=== PATIENT | female | born 1980 | race Caucasian/White ===

== ENCOUNTER 2020-06-22 22:10 | Observation (INO) | payer BC, SELFPAY ==
--- NOTE | ~2020-06-22 | CT_ITS ---
EXAMINATION: CT abdomen pelvis w con EXAM DATE: 06/23/2020 03:07 INDICATION: Low abdominal pain, flank pain, recent UTI. Fever nausea. Dysuria. TECHNIQUE: Spiral CT of the abdomen and pelvis was performed following intravenous injection of 100 m L Omnipaque 350. Axial, coronal and sagittal images were reviewed. The dose-length product (DLP) fo r this examination was 428.90 mGy-cm. The exposure was tailored according to patient size (auto mA e xposure control), and iterative reconstruction (ASIR) was used as additional dose reduction technique . There is no prior study for comparison. FINDINGS: The liver, spleen, adrenal glands and pancreas are unremarkable. There are cholecystectomy clips. Portal and splenic veins are patent. Kidneys enhance symmetrically. There is no hydronephr osis. The right ureter urothelium is enhancing suspicious for upper UTI. The uterus is unremarkable. The bladder is unremarkable. There is no retroperitoneal or pelvic lymphadenopathy. The appendix is normal. The stomach and small bowel are unremarkable. There is expected amount of c olonic stool. No free intraperitoneal gas. The heart is normal in size. There are no pericardial or pleural effusions. The lung bases are unremarkable. The bones are unremarkable. IMPRESSION: Right ureteral enhancement may indicate upper urinary tract infection. No evidence of roseline al parenchymal involvement. Reviewed, dictated and finalized at location A. IMPRESSION: Right ureteral enhancement may indicate upper urinary tract infecti on. No evidence of renal parenchymal involvement.
[2020-06-22 22:13] VITALS: BP 125/63; PULSE 100; RESP 16; TEMP 36.8; O2SAT 100
[2020-06-22 22:28] LABS: Basophils Percent Auto 0.2 % (0.2-1.2); Hemoglobin 11.6 g/dL (12.0-15.0); Immature Granulocyte Absolute 0.06 K/mm3 (0.00-0.031); Immature Granulocyte Percent A 0.4 % (0-0.5); Lymphocytes Absolute Auto 0.35 K/mm3 (0.9-3.2); Lymphocytes Percent Auto 2.1 % (18.3-44.2); Mean Corpuscular HGB Conc 33.1 g/dl (32-36); Mean Corpuscular Hemoglobin 27.7 pg (26-34); Mean Corpuscular Volume 83.5 fl (80-100); Mean Platelet Volume 10.4 fl (7.4-10.4); Monocytes Absolute Auto 0.5 K/mm3 (0.1-0.6); Monocytes Percent Auto 3.2 % (2.6-8.5); Neutrophils Absolute Auto 15.4 K/mm3 (1.3-6.7); Neutrophils Percent Auto 94.1 % (45.5-73.1); Platelet Count Result 289 k/mm3 (150-375); Red Blood Count 4.19 M/mm3 (4.2-5.4); Red Cell Distribution Width 12.9 % (11.5-14.5); White Blood Count 16.4 K/mm3 (4.5-10.0)
[2020-06-22 22:39] LABS: Add Urine Microscopic? YES; Appearance Urine Turbid (Clear); Bacteria Urine 1+ /hpf; Bilirubin Urine Negative (Negative); Blood Urine 2+ (Negative); Color Urine Yellow (Yellow); Glucose Urine UA Negative (Negative); Ketones Urine 1+ mg/dL (Negative); Leukocyte Esterase Ur 3+ LEU/UL (Negative); Mucus Urine Heavy /lpf; Nitrate Urine Positive (Negative); Protein Urine 2+ mg/dL (Negative); RBC Urine 21-50 /hpf (0-2); Specific Grav Ur 1.016 (1.001-1.035); WBC Clumps Urine Present /HPF; WBC Urine >75 /hpf
[2020-06-22 22:40] LABS: Alanine Aminotransferase 12 U/L (4-35); Albumin Level 4.1 g/dL (3.5-5.1); Alkaline Phosphatase 50 U/L (38-126); Anion Gap 10 mmol/L (8-16); Aspartate Amino Transferase 18 U/L (14-36); Bilirubin,Total 0.8 mg/dL (0.2-1.3); Blood Urea Nitrogen 11 mg/dL (7-17); Carbon Dioxide 24 mmol/L (22-30); Chloride 104 mmol/L (98-107); Estimated CRCL calculation 104 ml/min; Estimated Glomerular Filt Rate > 60; Glucose 148 mg/dL (65-105); Lipase 35 U/L (23-300); Potassium 3.6 mmol/L (3.4-5.0); Sodium 138 mmol/L (137-145)
[2020-06-22 23:45] VITALS: BP 107/67; BP 118/82; PULSE 78; PULSE 85; RESP 17; RESP 18; O2SAT 98; O2SAT 99
--- NOTE | 2020-06-22 23:48 | ECG_ITS ---
Measurements Intervals [place] Rate: 88 P: 70 IA: 149 QRS: 82 QRSD: 93 T: 45 QT: 350 QTc: 424 Interpretive Statements SINUS RHYTHM INCOMPLETE RIGHT BUNDLE BRANCH BLOCK BORDERLINE ECG Electronically Signed On 06-23-2020 6:51:00 CDT by Taj Talavera D.O.
[2020-06-23] VITALS (13 sets, daily range): BP systolic 100–122; BP diastolic 60–82; PULSE 68–96; RESP 17–20; TEMP 36.1–36.7; O2SAT 98–100; BMI 24.0
[2020-06-23 00:54] LABS: Lactic Acid Reflex 1.1 mmol/L (0.7-2.1)
--- NOTE | 2020-06-23 02:19 | ED.GENADULT ---
HPI - General Adult General Chief complaint: Urogenital-Female Stated complaint: fever, uti Time Seen by Provider: 06/23/20 02:12 Source: RN notes reviewed History of Present Illness HPI narrative: Patient presents emergency department from home for UTI. Patient states that she had a UTI 1 week ago was on antibiotics with improvement of symptoms. She states when she got antibiotics the symptoms again came back. She states that today she is developed a fever as well as lower abdominal pain and back pain worse on the left than the right. She states at home today she got ago to use the restroom and had a presyncopal episode with her who witnessed the episode was with the patient denies patient hitting her head. Patient denies any chest pain shortness of breath or any other symptoms Related Data Allergies Allergy/AdvReac Type Severity Reaction Status Date / Time No Known Allergies Allergy Mild Verified 06/22/20 22:17 Review of Systems Review of Systems: Narrative: Gen.: Denies fevers or chills Eyes: Denies eye pain or visual change ENT: Denies congestion Respiratory: Denies shortness of breath or cough CV: Reports syncopal episode GI: Reports lower abdominal pain, denies any diarrhea reports nausea vomiting see HPI Musculoskeletal: Denies back pain or muscle pain Neuro: Denies numbness, tingling, weakness or focal weakness Skin: Denies rash Except as documented, all other systems reviewed and negative [facility] Past Medical History Medical History (Updated 06/23/20 @ 04:01 by Dago Fountain DO) Patient denies significant medical history Social History Social History (Updated 06/23/20 @ 02:21 by Dago Fountain DO) Smoking status: Never smoker Exam Narrative: Exam Narrative: APPEARANCE: No acute distress, nontoxic, resting in bed HEENT: Normocephalic, atraumatic, OMM RESPIRATORY: No respiratory distress, clear to auscultation bilaterally with no rhonchi wheezing or rales CARDIOVASCULAR: RRR s murmur ABDOMINAL: Soft, nondistended, tender palpation right lower quadrant and left lower quadrant, no change mental quadrant left upper quadrant, no rebound or guarding, left flank tenderness MUSCULOSKELETAl: Moves all extremities. No clubbing, cyanosis or edema. NEURO: Awake and alert. Following commands, speech normal, no focal deficits SKIN:: Warm, dry. Normal Color PSYCHIATRIC: Normal affect/mood Course Course Emergency Course: Discussed Dr. Duke presentation work-up. Agrees with admission at this time Discussed with patient and family results of workup and diagnosis. Discussed need for admission. Patient and family understand and agree to current treatment plan Vital Signs Vital signs: Vital Signs Temperature 98.2 F 06/22/20 22:13 Pulse Rate 100 06/22/20 22:13 Respiratory Rate 16 06/22/20 22:13 Blood Pressure 125/63 06/22/20 22:13 Pulse Oximetry 100 06/22/20 22:13 Temperature 97.9 F 06/23/20 01:48 Pulse Rate 85 06/23/20 02:30 Respiratory Rate 17 06/23/20 01:48 Blood Pressure 115/68 06/23/20 02:30 Pulse Oximetry 98 06/23/20 01:48 Medical Decision Making Vital Signs Vital Signs: Vital Signs Temperature 98.2 F 06/22/20 22:13 Pulse Rate 100 06/22/20 22:13 Respiratory Rate 16 06/22/20 22:13 Blood Pressure 125/63 06/22/20 22:13 Pulse Oximetry 100 06/22/20 22:13 Temperature 97.9 F 06/23/20 01:48 Pulse Rate 85 06/23/20 02:30 Respiratory Rate 17 06/23/20 01:48 Blood Pressure 115/68 06/23/20 02:30 Pulse Oximetry 98 06/23/20 01:48 Lab Data Result diagrams: 06/22/20 22:22 06/22/20 22:22 Labs: Lab Results 06/22/20 06/22/20 06/22/20 Range/Units 22:22 22:22 22:22 WBC 16.4 H (4.5-10.0) K/mm3 RBC 4.19 L (4.2-5.4) M/mm3 Hgb 11.6 L (12.0-15.0) g/dL Hct 35.0 L (37.0-47.0) % MCV 83.5 (80-100) fl MCH 27.7 (26-34) pg MCHC 33.1 (32-36) g/dl RDW 12.9 (11.5-
[2020-06-23] MEDS: SODIUM CHLORIDE 0.9% IV 1,000 ML 999 ML IV CONT (02:51)
[2020-06-23 03:34] LABS: Troponin I < 0.012 ng/mL (0.000-0.034)
[2020-06-23] MEDS: SODIUM CHLORIDE 0.9% IV 1,000 ML 125 ML IV CONT ×3 (04:00→21:23)
[2020-06-23] MEDS: KETOROLAC 30 MG/ML VIAL (*BKC) IV PUSH (04:52)
--- NOTE | 2020-06-23 06:58 | ADMGEN ---
This patient, Lea Lewis, was admitted to 3 [facility] Surg Room 300-01. Patient/family oriented to hospital policies and general routines including ID bracelet, bed and alarms, visiting hours, pain management, procedures, bathroom and other care routines, personal items, smoking policy, room service/diet, and visiting hours. Valuables list has been completed. Information on how to activate the Rapid Response Team has been discussed. Patient/Family are encouraged to report perceived risks to care and to ask questions if they do not understand what they are told or what they should do. TDialRNC
[2020-06-23 09:31] LABS: Basophils Percent Auto 0.3 % (0.2-1.2); Eosinophils Percent Auto 0.4 % (0-4.4); Hematocrit 33.9 % (37.0-47.0); Hemoglobin 10.9 g/dL (12.0-15.0); Immature Granulocyte Absolute 0.04 K/mm3 (0.00-0.031); Immature Granulocyte Percent A 0.4 % (0-0.5); Lymphocytes Absolute Auto 1.32 K/mm3 (0.9-3.2); Lymphocytes Percent Auto 12.7 % (18.3-44.2); Mean Corpuscular HGB Conc 32.2 g/dl (32-36); Mean Corpuscular Hemoglobin 27.3 pg (26-34); Mean Platelet Volume 10.7 fl (7.4-10.4); Monocytes Absolute Auto 0.6 K/mm3 (0.1-0.6); Neutrophils Absolute Auto 8.3 K/mm3 (1.3-6.7); Neutrophils Percent Auto 80.2 % (45.5-73.1); Platelet Count Result 271 k/mm3 (150-375); Red Blood Count 3.99 M/mm3 (4.2-5.4); Red Cell Distribution Width 13.1 % (11.5-14.5); White Blood Count 10.4 K/mm3 (4.5-10.0)
[2020-06-23 09:40] LABS: Alanine Aminotransferase 9 U/L (4-35); Albumin Level 3.6 g/dL (3.5-5.1); Alkaline Phosphatase 41 U/L (38-126); Anion Gap 3 mmol/L (8-16); Aspartate Amino Transferase 14 U/L (14-36); Bilirubin,Total 0.4 mg/dL (0.2-1.3); Blood Urea Nitrogen 9 mg/dL (7-17); Calcium 8.3 mg/dL (8.4-10.2); Carbon Dioxide 27 mmol/L (22-30); Chloride 107 mmol/L (98-107); Estimated CRCL calculation 120 ml/min; Estimated Glomerular Filt Rate > 60; Glucose 92 mg/dL (65-105); Potassium 3.7 mmol/L (3.4-5.0); Sodium 137 mmol/L (137-145)
--- NOTE | 2020-06-23 11:45 | PM.IMHP ---
H&P: HPI History of Present Illness Date/Time: 06/23/20 11:45 Chief complaint: sepsis, UTI, syncope Narrative: Date of admission: 06/23/2020 Date of service: 06/23/2020 Lea Lewis is a healthy 40 year old female with history of frequent UTIs who presented to the emergency department on 06/23/2020 with complaints of UGI symptoms. She had been having symptoms of dysuria, frequency, urgency, lower abdominal pain for approximately 1 week. She had a prescription for Bactrim prescribed to her on an as-needed basis given her history of frequent UTIs. She took this for about 7 days with no improvement in her symptoms. Yesterday, she scheduled an appointment with PCP who prescribed a different antibiotic, although she cannot recall the name of this medication. She did not receive any doses of this medication. When she arrived home from the appointment, she began feeling acutely worse. She was vomiting, had chills, and fever with T-max 101.0?. She had an episode of presyncope while ambulating to the bathroom. She did not lose consciousness, fall, or hit her head. After this episode, she proceeded to the emergency department. Upon arrival, she was afebrile and additional vital signs stable. UA was grossly abnormal and white count elevated at 16.4. She had a CT a/p which showed right ureteral enhancement which may indicate upper UTI. Upon my evaluation, she is feeling better. She has not had any further episodes of vomiting and she denies nausea. Fever and chills have resolved. She denies any dizziness or lightheadedness. She continues to endorse dysuria and lower abdominal pain. Review of Systems Review of Systems: Narrative: 12 systems reviewed with pertinent positives and negatives as per HPI below. She denies shortness of breath, chest pain, MONAE, palpitations, cough, congestion, sore throat, dysphagia, numbness, tingling, lower extremity edema, body aches and cramps, bleeding or bruising. She endorses a mild headache. She also has some menstrual cramps. She is currently on her menstrual cycle. Bedside test in ED was negative. [facility] Past Medical History Medical History (Updated 06/23/20 @ 11:57 by Noelle Martinez PA-C) Frequent UTI Surgical History Surgical History (Updated 06/23/20 @ 11:57 by Noelle Martinez PA-C) H/O section x3 History of cholecystectomy 2019 Family History Family History (Updated 06/23/20 @ 11:58 by Noelle Martinez PA-C) Father Acute myocardial infarction Mother Hypertension Grandparent Diabetes mellitus Social History Social History (Updated 06/23/20 @ 11:59 by Noelle Martinez PA-C) Social History: Ms. Ayala lives at home with her and 3 daughters. 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 She is independent in her ADLs. Her PCP is Dr. Patterson. She designate her , Bishop, as her surrogate decision maker. She would like to be a full code. Smoking packs per day: 0.5 Smoking cigarettes per day: 10.0 Years smoked: 4 Smoking pack-years: 2.00 Smoking status: Former smoker Alcohol intake: never Substance use: never Living arrangements: with family Gender identity (if verbalized by the patient): Female Spiritual care concerns: No Meds Home Medications and Allergies Home Medications Medication Instructions Recorded Confirmed Type No Home Medications 06/23/20 06/23/20 History Allergies Allergy/AdvReac Type Severity Reaction Status Date / Time No Known Allergies Allergy Mild Verified 06/22/20 22:17 Vital Signs Vital Signs - 24 hr 06/22/20 22:13 06/22/20 23:45 06/23/20 01:48 Temperature 98.2 F 97.9 F Pulse Rate 100 78 82 Respiratory Rate 16 18 17 Blood Pressure 125/63 118/82 109/60 Pulse Oximetry 100 99 98 06/23/20 02:29 06/23/20 02:30 06/23/20 02:45 Temperature Pulse Rate 80 85 79 Respiratory Rate 18 Blood Pressure 110/76 115/68 111/67 Pulse Oximetry 98 09/
[2020-06-23] MEDS: ACETAMINOPHEN 325 MG TABLET 650 MG PO ×2 (12:01→16:17)
[2020-06-24] VITALS: PULSE 70
[2020-06-24 04:00] VITALS: PULSE 64
[2020-06-24] MEDS: SODIUM CHLORIDE 0.9% IV 1,000 ML 125 ML IV CONT (05:20)
[2020-06-24 06:00] VITALS: BP 105/60; PULSE 75; RESP 18; TEMP 37.1; O2SAT 100
[2020-06-24 07:13] LABS: Basophils Percent Auto 0.4 % (0.2-1.2); Eosinophils Absolute Auto 0.2 K/mm3 (0-0.3); Eosinophils Percent Auto 2.5 % (0-4.4); Hematocrit 30.7 % (37.0-47.0); Hemoglobin 9.9 g/dL (12.0-15.0); Immature Granulocyte Absolute 0.02 K/mm3 (0.00-0.031); Immature Granulocyte Percent A 0.3 % (0-0.5); Lymphocytes Absolute Auto 1.48 K/mm3 (0.9-3.2); Lymphocytes Percent Auto 20.7 % (18.3-44.2); Mean Corpuscular HGB Conc 32.2 g/dl (32-36); Mean Corpuscular Hemoglobin 27.3 pg (26-34); Mean Corpuscular Volume 84.8 fl (80-100); Monocytes Absolute Auto 0.9 K/mm3 (0.1-0.6); Monocytes Percent Auto 12.8 % (2.6-8.5); Neutrophils Absolute Auto 4.5 K/mm3 (1.3-6.7); Neutrophils Percent Auto 63.3 % (45.5-73.1); Platelet Count Result 251 k/mm3 (150-375); Red Blood Count 3.62 M/mm3 (4.2-5.4); Red Cell Distribution Width 13.2 % (11.5-14.5); White Blood Count 7.2 K/mm3 (4.5-10.0)
[2020-06-24 07:28] LABS: Anion Gap 5 mmol/L (8-16); Blood Urea Nitrogen 8 mg/dL (7-17); Carbon Dioxide 25 mmol/L (22-30); Chloride 110 mmol/L (98-107); Estimated CRCL calculation 120 ml/min; Estimated Glomerular Filt Rate > 60; Glucose 91 mg/dL (65-105); Potassium 4.1 mmol/L (3.4-5.0); Sodium 140 mmol/L (137-145)
[2020-06-24 08:00] VITALS: PULSE 81
--- NOTE | 2020-06-24 10:04 | PM.DS ---
DS: Admitting Diagnosis Admitting Diagnosis Admitting Diagnosis: sepsis, UTI, syncope DS: Discharge Diagnosis Discharge Diagnosis (1) UTI (urinary tract infection): Code(s): N39.0 - Urinary tract infection, site not specified Status: Acute Assessment and Plan: Urinalysis grossly abnormal. She endorses dysuria and lower abdominal pain. She had been taking Bactrim for 7 days prior to presentation with no resolution of symptoms. She was started on IV Rocephin. Urine culture grew >100,000 CFU E. Coli with sensitivity to Rocephin and resistance to Bactrim. She will continue PO Cefdinir for 10 days and follow up with her PCP in 1-2 weeks to monitor for resolution. (2) Sepsis: Code(s): A41.9 - Sepsis, unspecified organism Status: Acute Assessment and Plan: Evident upon arrival with tachycardia and leukocytosis. Self-reported T-max 101.0? at home. She remained afebrile during admission. Lactic wnl at 1.1. Source of infection is UTI. She recievied IV antibiotics and IV fluids. Sepsis resolved. She remained afebrile and tachycardia resolved. Leukocytosis resolved and was 7.2 at time of discharge. Preliminary BCx show NGTD and final cultures will be monitored. (3) Pre-syncope: Code(s): R55 - Syncope and collapse Status: Acute Assessment and Plan: She reported an episode of dizziness and lightheadedness in which she felt she was going to pass out while ambulating to the restroom at home on 06/22/20. I suspect this is due to dehydration secondary to acute infection, fever, and nausea/vomiting. Troponin negative. EKG reviewed and unremarkable. Nausea and vomiting has resolved and suspect continued improvement with increased PO intake. She remained asymptomatic during admission with no additional episodes of presyncope, dizziness, or lightheadedness. DS: Summary Hospital Course Reason for hospitalization: UTI Hospital Course: Date of admission: 06/23/2020 Date of discharge: 06/24/2020 Lea Lewis is a healthy 40 year old female with history of frequent UTIs who presented to the emergency department on 06/23/2020 with complaints of UTI symptoms. She had been having symptoms of dysuria, frequency, urgency, lower abdominal pain for approximately 1 week. She took Bactrim for approximately 7 days with no improvement in her symptoms. On 06/22, she began feeling acutely worse. She was vomiting, had chills, and fever with T-max 101.0?. She had an episode of presyncope while ambulating to the bathroom. She did not lose consciousness, fall, or hit her head. After this episode, she proceeded to the emergency department. Upon arrival, she was afebrile and additional vital signs stable. UA was grossly abnormal and white count elevated at 16.4. She had a CT a/p which showed right ureteral enhancement which may indicate upper UTI. Bedside test negative. She was admitted to the hospitalist service for further evaluation and management. Please see above for further details. She was started on IV Rocephin and rehydrated with IV fluids. She began feeling much better and was eager for discharge home. Sepsis resolved. Lower abdominal pain and dysuria resolved. Given her overall improvement and response to antibiotics, she was determined to no longer require inpatient care. We discussed worrisome signs and symptoms for which she should return and she was educated on her medications. All questions were answered. She was discharged in hemodynamically stable condition on 06/24/2020. Status at Discharge Functional status at discharge: independent ambulation Overall status at discharge: patient is progressing back to baseline Time Spent with Patient Time attestation: Total time spent providing and/or coordinating discharge services: 45 minutes Time spent: Greater than 30 minutes Exam Narrative: Exam Narrative: Ms. Ayala is well-nourished 40-year-old female who is lying supine in bed. She appear
== END 2020-06-24 10:30 | disposition home or self-care (01) ==
LOC: ANHED 06-23 04:01 → ANH3MEDSUR 06-23 04:23
PROVIDERS: Physician Assistant; Admitting Provider Family Medicine; Emergency Provider Emergency Medicine; PCP Physician Assistant; Visit Provider Family Medicine
DX: N39.0 Urinary tract infection, site not specified (principal); A41.9 Sepsis, unspecified organism; R55 Syncope and collapse; R00.0 Tachycardia, unspecified; D72.829 Elevated white blood cell count, unspecified; R93.41 Abnormal radiologic findings on diagnostic imaging of renal pelvis, ureter, or bladder; Z87.891 Personal history of nicotine dependence
CPT/HCPCS: 36415; 74177; 80048; 80053; 81001; 81025; 83605; 83690; 84484; 85025; 87040; 87077; 87086; 87088; 87186; 93005; 96361; 96365; 96366; 96375; 99285; A9270; G0378; J0696; J1885; J7030; Q9967